=== PATIENT | female | born 1980 | race Two or more races ===

== ENCOUNTER 2018-10-16 08:24 | Emergency (ER) | payer OTHER ==
[~2018-10-16] VITALS: Ht 157.5 cm; Wt 81.2 kg
--- NOTE | 2018-10-16 08:30 | NUR ---
CAME IN FOR COUGH AND CONGESTION "SINCE AUGUST WITH 2 ROUNDS OF ATB". ALSO C/O N/V x 2 DAYS. TO ER BED 2, HOOKED TO MONITOR, CHANGED TO GOWN, PROVIDED W WARM BLANKET, AWAITING MD [place].
[2018-10-16 08:40] VITALS: BP 121/73
--- NOTE | 2018-10-16 08:42 | NUR ---
DR LOPEZ AT BEDSIDE
--- NOTE | 2018-10-16 08:53 | NUR ---
Patient discharged to home in stable condition. Written and verbal after care instructions given. Patient verbalizes understanding of instruction.
== END 2018-10-16 08:55 | disposition home or self-care (01) ==
LOC: ER 08:24
DX: J32.9 Chronic sinusitis, unspecified (principal)
CPT/HCPCS: Z7502